=== PATIENT | female | born 1940 | race Caucasian/White ===

== ENCOUNTER 2018-11-11 02:06 | Observation (INO) | payer MEDICARE ==
[~2018-11-11] VITALS: Ht 165.1 cm; Wt 72.6 kg
[~2018-11-11 02:06] MED LIST: ALEVE PO; ASA325 PO; CIPRO500 MG PO; CIPROFLOXACIN PO; CLARITIN10 M2 PO; LOVASTATIN10 MG PO; LOVASTATIN20 MG PO; MOBIC7.5 MG PO; RESTASIS OU; TYLENOL PO; ULTRAM50 MG PO; ZANTAC PO; ZYRTEC10 M3 PO
--- OUTSIDE RECORDS SUMMARY | 2018-11-11 02:11 | XMS REPORT | Continuity of Care Document ---
Author Author [facility] Organization Interface Address Unknown Phone Unavailable Problems Problem Status Onset Date Classification Date Reported Comments Source M54.41 - "LUMBAGO WITH SCIATICA, RIGHT S Active 04/19/2017 [facility] Medications Medication Details Route Status Patient Instructions Ordering Provider Order Date Source Allergies, Adverse Reactions, Alerts Substance Category Reaction Severity Reaction type Status Date Reported Comments Source morphine Assertion Drug allergy Active [facility] [place] Immunizations Immunization Date Given Site Status Last Updated Comments Source Results Order Name Results Value Reference Range Date Interpretation Comments Source Spine lumbar 2 or 3 views DX Spine lumbar 2 or 3 views DX EXAM: XR LUMBAR SPINE 3 VIEWS DATE: 04/19/2017 3:52 PM CDT INDICATION: - M54.41 Lumbago with sciatica, right side COMPARISON: SPINE LUMBAR SERIES DX 07/15/2006. TECHNIQUE: AP and lateral radiographs of the lumbar spine FINDINGS: 5 lumbar type, non-rib bearing vertebral bodies are present. Vertebral body heights and disc heights are maintained. Alignment is within normal limits. There is no osseous degenerative change. No soft tissue abnormality is identified. IMPRESSION: No acute abnormality. 04/19/2017 - - This report was dictated by a Motor Man/Fellow. I have personally reviewed the images as well as the Resident's interpretation and agree with the findings. Read by: Marleny Bae MD Resident: Marleny Bae MD Dictated Date/time: 04/19/17 17:23 Electronically Signed by: Amanda Benitez MD 04/19/17 19:00 FINAL REPORT [facility] Vital Signs Vital Sign Value Date Comments Source Encounters Location Location Details Encounter Type Encounter Number Reason For Visit Attending Provider ADM Date DC Date Status Source [facility] [place] [facility] [id number] iYfan Garcia 02/10/2015 02/11/2015 [facility] [place] [facility] Outpatient Imaging - [place] [facility] [id number] An Rios 04/19/2017 04/20/2017 ISIAH ESPARZA [place] Procedures Procedure Code Date Perfomer Comments Source
--- OUTSIDE RECORDS SUMMARY | 2018-11-11 02:11 | XMS REPORT | Summary of Care ---
Author Author [facility] Outpatient Imaging [facility]patient [facility] Address Unknown Phone Unavailable Encounter [facility] Encntr_alias(FIN) [id number] Date(s): 04/19/17 - 04/19/17 [facility] Outpatient Imaging [facility] [address] [facility], [address] [place] [phone] Discharge Disposition: Home or Self Care Attending Physician: An Rios MD Vital Signs No data available for this section Problem List No data available for this section Allergies, Adverse Reactions, Alerts Substance Reaction Severity Status morphine Active Medications No data available for this section Results No data available for this section Immunizations No data available for this section Procedures No data available for this section Social History No data available for this section Assessment and Plan No data available for this section
--- OUTSIDE RECORDS SUMMARY | 2018-11-11 02:11 | XMS REPORT | Summary of Care ---
Author Organization Unknown Address Unknown Phone Unavailable Encounter [facility] Encntr_xenia([place]) [id number] Date(s): 02/10/15 - 02/10/15 [facility] Outpatient Imaging - [address] [address] [phone] Discharge Disposition: Home Physician Attending: Yifan Garcia MD Vital Signs No data available for [...]
[2018-11-11] MEDS ORDERED: TRAMADOL HCL 50 MG TAB PO ONE (02:15)
--- NOTE | 2018-11-11 03:49 | Diagnostic Imaging Report ---
Thoracic Spine Radiographs: 2 views Lumbar Spine Radiographs: 3 views HISTORY: Fall. COMPARISON: None available. DISCUSSION: Some of the osseous structures are partially obscured by stool and bowel gas. There are five non-rib bearing lumbar vertebral bodies. The alignment of the spine is within normal limits. Age indeterminate L1 compression deformity with approximately 15% loss of vertebral body height. Disc Spaces: Mild disc space narrowing at L5-S1. Facets: The facet joints are unremarkable. IMPRESSION: Age indeterminate L1 compression deformity. No acute radiographic abnormalities of the thoracic spine. Signed by: DR. Ousmane Lopez MD on 11/11/2018 3:46 AM
--- NOTE | 2018-11-11 03:51 | Diagnostic Imaging Report ---
HIP LEFT 2-3 VW (+/- PELVIS) HISTORY: Fall. COMPARISON: None available. FINDINGS: Bones: No acute displaced fracture. Osseous alignment is within normal limits. Joints: The joint spaces are well-maintained. Soft tissues: The soft tissues appear unremarkable. IMPRESSION: No acute radiographic abnormality. Signed by: DR. Ousmane Lopez MD on 11/11/2018 3:47 AM
--- NOTE | 2018-11-11 03:52 | Diagnostic Imaging Report ---
KNEE LEFT THREE VIEWS HISTORY: Pain. COMPARISON: None available. FINDINGS: Bones: No acute displaced fracture. Osseous alignment is within normal limits. Joints: Left knee total arthroplasty without evidence of hardware fracture or loosening. Soft tissues: The soft tissues appear unremarkable. IMPRESSION: No acute radiographic abnormality. Signed by: DR. Ousmane Lopez MD on 11/11/2018 3:49 AM
[2018-11-11] MEDS ORDERED: HYDROMORPHONE 2MG/ML 2 MG/ML ML IV ONE ×2 (04:15→11:00)
[2018-11-11] MEDS ORDERED: ONDANSETRON HCL INJ 2MG/ML 2ML 2 MG/ML VIAL IV STA (04:20)
[2018-11-11 04:31] LABS: BASOPHILS % 0.2 % (0.0-1.0); EOSINOPHILS # (AUTO) 0.1 (0.0-0.4); EOSINOPHILS % 0.7 % (0.0-6.0); HEMATOCRIT 36.7 % (34.2-44.1); HEMOGLOBIN 12.1 g/dL (12.0-16.0); LYMPHOCYTES # (AUTO) 1.1 (1.0-3.2); LYMPHOCYTES % 12.7 % (18.0-39.1); MONOCYTES # (AUTO) 0.6 (0.2-0.8); MONOCYTES % 6.4 % (4.4-11.3); NEUTROPHILS % 79.5 % (38.7-80.0); PLATELET COUNT 247 x10e3/uL (140-360); RED BLOOD COUNT 4.17 x10e6/uL (3.6-5.1); RED CELL DISTRIBUTION WIDTH 13.4 % (11.7-14.4)
[2018-11-11 04:40] LABS: INR 0.88; PROTHROMBIN TIME 12.4 seconds (11.9-14.5)
[2018-11-11 04:41] LABS: PARTIAL THROMBOPLASTIN TIME 28.7 seconds (23.8-35.5)
[2018-11-11 04:45] LABS: ANION GAP 11.6 mmol/L (8-16); BLOOD UREA NITROGEN 15 mg/dL (7-26); BUN/CREATININE RATIO 21 (6-25); CALCIUM 9.3 mg/dL (8.4-10.2); CARBON DIOXIDE 27 mmol/L (22-29); CHLORIDE 97 mmol/L (98-107); CREATININE, SERUM 0.72 mg/dL (0.57-1.11); EST GLOMERULAR FILTRATION RATE > 60 ML/MIN (60-); GLUCOSE 118 mg/dL (74-118); POTASSIUM 3.6 mmol/L (3.5-5.1); SODIUM 132 mmol/L (136-145)
--- OUTSIDE RECORDS SUMMARY | 2018-11-11 04:47 | XMS REPORT ---
Author Author [facility] Address Unknown Phone Unavailable Care Team Providers Care [employer] Electrical Engineer Name Role Phone Zelalem JIMENES Unavailable Unavailable Problems This patient has no known problems. Allergies, Adverse Reactions, Alerts This patient has no known allergies or adverse reactions. Medications This patient has no known medications. Results Test Description Test Time Test Comments Text Results Atomic Results Result Comments KNEE LEFT THREE VIEWS 2018-11-11 03:47:00 [facility] [address] [address] Patient Name: GAUDENCIO CHEUNG V MR #: [id number] : 1940 Age/Sex: 78/F Req #: [id number] Adm Physician: Ordered by: ANAHY JIMENES MD Report #: [id number] Location: ER Room/Bed: Procedure: [id number] DX/KNEE LEFT THREE VIEWS Exam Date: 11/11/18 Exam Time: 0250 REPORT STATUS: Signed KNEE LEFT THREE VIEWS HISTORY: Pain. COMPARISON: None available. FINDINGS: Bones: No acute displaced fracture. Osseous alignment is within normal limits. Joints: Left knee total arthroplasty without evidence of hardware fracture or loosening. Soft tissues: The soft tissues appear unremarkable. IMPRESSION: No acute radiographic abnormality. Signed by: DR. Ousmane Lopez MD on 11/11/2018 3:49 AM Dictated By: OUSMANE LOPEZ MD 8 Transcribed By: HEATHER on 11/11/18348 COPY TO: ANAHY JIMENES MD HIP LEFT 2-3 VW (+/- PELVIS) 2018-11-11 03:46:00 [id number] [address] Patient Name: GAUDENCIO CHEUNG V MR #: [id number] : 1940 Age/Sex: 78/F Req #: [id number] Adm Physician: Ordered by: ANAHY JIMENES MD Report #: [id number] Location: ER Room/Bed: Procedure: [id number] DX/HIP LEFT 2-3 VW (+/- PELVIS) Exam Date: Exam Time: REPORT STATUS: Signed HIP LEFT 2-3 VW (+/- PELVIS) HISTORY: Fall. COMPARISON: None available. FINDINGS: Bones: No acute displaced fracture. Osseous alignment is within normal limits. Joints: The joint spaces are well-maintained. Soft tissues: The soft tissues appear unremarkable. IMPRESSION: No acute radiographic abnormality. Signed by: DR. Ousmane Lopez MD on 11/11/2018 3:47 AM Dictated By: OUSMANE LOPEZ MD 6 Transcribed By: HEATHER on 11/11/18346 COPY TO: ANAHY JIMENES MD THORACIC SPINE 2VW 2018-11-11 03:41:[address] [address] Patient Name: GAUDENCIO CHEUNG V MR #: [id number] : 1940 Age/Sex: 78/F Req #: [id number] Adm Physician: Ordered by: ANAHY JIMENES MD Report #: [id number] Location: ER Room/Bed: Procedure: [id number] DX/THORACIC SPINE 2VW Exam Date: 11/11/18 Exam Time: 0250 REPORT STATUS: Signed Thoracic Spine Radiographs: 2 views Lumbar Spine Radiographs: 3 views HISTORY: Fall. COMPARISON: None available. DISCUSSION: Some of the osseous structures are partially obscured by stool and bowel gas. There are five non-rib bearing lumbar vertebral bodies. The alignment of the spine is within normal limits. Age indeterminate L1 compression deformity with approximately 15% loss of vertebral body height. Disc Spaces: Mild disc space narrowing at L5-S1. Facets: The facet joints are unremarkable. IMPRESSION: Age indeterminate L1 compression deformity. No acute radiographic abnormalities of the thoracic spine. Signed by: DR. Ousmane Lopez MD on 11/11/2018 3:46 AM Dictated By: OUSMANE LOPEZ MD 5 Transcribed By: HEATHER on 11/11/18345 COPY TO: ANAHY JIMENES MD LUMBAR 3 VIEW 2018-11-11 03:41:00 [address] [address] Patient Name: GAUDENCIO CHEUNG V MR #: [id number] : 1940 Age/Sex: 78/F Req #: [id number] Adm Physician: Ordered by: ANAHY JIMENES MD Report #: [id number] Location: ER Room/Bed: Procedure: [id number] DX/LUMBAR 3 VIEW Exam Date: 11/11/18 Exam Time: 0250 REPORT STATUS: Signed Thoracic Spine Radiographs: 2 views Lumbar Spine Radio graphs: 3 views HISTORY: Fall. COMPARISON: None available. DISCUSSION: Some of the osseous structures are partially obscured by stool and bowel gas. There are five non-rib bearing lumbar vertebral bodies. The alignment of the spine is within normal limits. Age indeterminate L1 compression deformity with approximately 15% loss of vertebral body height. Disc Spaces: Mild disc space narrowing at L5-S1. Facets: The facet joints are unremarkable. IMPRESSION: Age indeterminate L1 compression deformity. No acute radiographic abnormalities of the thoracic spine. Signed by: DR. Ousmane Lopez MD on 11/11/2018 3:46 AM Dictated By: OUSMANE LOPEZ MD [id number] Transcribed By: HEATHER on 11/11/186 COPY TO: ANAHY JIMENES MD
[2018-11-11] MEDS ORDERED: DONEPEZIL HCL5 MG PO (06:01)
[2018-11-11] MEDS ORDERED: RESTASIS1 EACH OU (06:01)
--- NOTE | 2018-11-11 06:49 | NUR ---
received report from off going nurse, patient in room in bed, awake and alert. no s/s of acute distress. reports pain meds admin are still working and thather pain is well managed. pending room assignment for admission. bed down call lightin reach, will continue to monitor.
[2018-11-11] MEDS: HYDROMORPHONE 2MG/ML 2 MG/ML ML IV PRN ×2 (10:30→18:23)
[2018-11-11] MEDS: ONDANSETRON HCL INJ 2MG/ML 2ML 2 MG/ML VIAL IV PRN (10:32)
[2018-11-11] MEDS ORDERED: HYDROMORPHONE 1MG/1ML INJ IV ONE (10:45)
[2018-11-11] MEDS: PROMETHAZINE 12.5MG/ NACL 0.9% 12.5 MG/50 ML BAG IV PRN ×2 (13:14→18:24)
--- NOTE | 2018-11-11 14:57 | Diagnostic Imaging Report ---
EXAMINATION: MRI of the lumbar spine without contrast HISTORY: Low back pain, status post fall today, evaluate L1 compression fracture COMPARISON: Lumbar spine x-ray 11/11/2018 TECHNIQUE: Sagittal T1, T2, STIR; axial T2 and proton density. FINDINGS: It is assumed that there are 5 lumbar vertebrae. Curvature/Alignment: Normal lordosis. Vertebrae: -Acute compression fracture of the L1 vertebral body with decreased vertebral body height by approximately 10%, very minimal posterior retropulsion of the superior endplate, prominent subchondral bone marrow edema pattern is to the superior endplate. No associated spinal canal stenoses or compression of the conus medullaris. No abnormalities of the posterior ligamentous complex.-No other fractures, infection or neoplasm. -Diffuse increased T1 bone marrow signal intensity likely related to osteopenia. Conus: Normal, terminating at L1-L2 Cauda equina: Unremarkable. Lower thoracic: Unremarkable. Paraspinal soft tissues: Moderate to severe paraspinal musculature atrophy Degenerative changes: L1-L2: Minimal symmetric disc bulge without stenoses L2-L3: Minimal symmetric disc bulge and facet arthrosis without stenoses L3-L4: Mild symmetric disc bulge and facet arthrosis. No significant stenoses. L4-L5: Mild symmetric disc bulge, ligamenta flava thickening and facet arthrosis without significant stenoses. L5-S1: Mild asymmetric right disc bulge and marginal endplate osteophytes, moderate bilateral facet arthroses. No significant canal or foraminal stenoses. IMPRESSION: 1. Unchanged mild acute osteoporotic compression fracture of the L1 vertebral body without associated canal stenosis or cord compression. 2. Mild multilevel degenerative changes without significant spinal canal or foraminal stenosis. Signed by: Dr. Danielle Stiles M.D. on 11/11/2018 2:54 PM
--- NOTE | 2018-11-11 19:32 | NUR ---
PT AWAKE ALERT SKIN W/D RESP NONLAB. NAD NOTED. REPORT CALLED TO FLOOR. FAMILY AT BEDSIDE. PT STATES SHE FEELS MUCH BETTER
[2018-11-11 20:00] VITALS: BP 139/70
--- NOTE | 2018-11-11 20:00 | NUR ---
PATIENT RECEIVED FROM EMERGENCY DEPARTMENT PER BED AT 140. SHE'S ALERT AND ORIENTED X3, NO RESPIRATORY DISTRESS OBSERVED AND SHE DENIES PAIN. BRUISES OBSERVED TO THE LEGS, ARMS, LEFT KNEE AND LEFT SIDE OF THE BUTTOCK. NON PITTING EDEMA TO THE LEFT KNEE, PATIENT ORIENTED TO SURROUNDINGS, CALL LIGHT WITHIN EASY REACH AND HER FAMILY MEMBERS ARE AT THE BEDSIDE.
[2018-11-11 20:15] VITALS: BP 139/70
[2018-11-12] VITALS (9 sets, daily range): BP systolic 107–164; BP diastolic 55–93
--- NOTE | 2018-11-12 00:33 | NUR ---
PATIENT IS ASLEEP, SHE'S EASY TO AROUSE. SHE DENIES PAIN, FAMILY MEMBER IN THE ROOM WITH THE PATIENT, BED ALARM ON.
[2018-11-12] MEDS: HYDROMORPHONE 2MG/ML 2 MG/ML ML IV PRN ×2 (04:25→11:46)
[2018-11-12] MEDS: ONDANSETRON HCL INJ 2MG/ML 2ML 2 MG/ML VIAL IV PRN (04:25)
--- NOTE | 2018-11-12 04:26 | NUR ---
PATIENT ASSISTED TO THE RESTROOM TO VOID, SHE'S NOW BACK IN BED AND C/O PAIN TO THE LOWER BACK. MEDICATED WITH DILAUDID AND ZOFRAN ORDERED, BED ALARM ON, CALL LIGHT WITHIN EASY REACH.
--- NOTE | 2018-11-12 10:22 | NUR ---
Dr. Garcia aware in regards to pt's procedure, Kyphoplasty, will be done tomorrow per Planning Supervisor. Consent filled out and signed, placed in pt's chart at this time.
--- NOTE | 2018-11-12 15:41 | NUR ---
SOCIAL WORK INITIAL ASSESSMENT [employer] to bedside to discuss plan of care with patient/family. CM/SW role and care transitions discussed. Anticipated discharge plan discussed along with duration of care. CM/SW discussed patients right to make decisions in care. CM/SW work hours given. Patient lives: APARTMENT BY SELF Admit/Transfer: VIA ED POA/Emergency contact: DAUGHTER [phone] Current/Previous Home Health: NONE PCP/Follow-up Care: JENNIE Current/Previous DME: WALKER BUT DOESNT USE Other Services: NONE Employment Status: TANIA Areas of Concerns: TANIA Referral Needs: NONE Education Needs: NONE IMM/MALDONADO given and signed (if applicable): MALDONADO Goal for discharge: HOME CM/SW left business card at the bedside with contact information. Name and number was also written on the patients whiteboard. Patient verbalized understanding of discussion. CM will follow-up with ongoing discharge and transition of care needs.
--- NOTE | 2018-11-12 16:31 | NUR ---
ARCHANA SPOKE TO BEDSIDE NURSE [place] AND NURSE SEWER BUILDER APOORVA REGARDING PATIENT PLAN OF CARE. PATIENT IS UPSET DUE TO PROCEDURE BEING PUSHED BACK TO SATURDAY AT 0730 DUE TO AVAILABILITY. THE PROCEDURE IS CONSIDERED AN OUTPATIENT PROCEDURE. DR. SCHNEIDER CALLED AND CM NOTIFIED MD OF SITUATION AND RECOMMENDED DISCHARGING PATIENT SO THEY CAN FOLLOW UP OUTPATIENT. FAMILY AND PATIENT UPSET AND WANTS A DECISION MADE TODAY WHETHER THE PATIENT WILL BE DISCHARGE AND FOLLOW UP OUTPATIENT OR THE PROCEDURE IS MOVED TO SATURDAY INSTEAD OF SATURDAY. MY CM NOTIFIED AND ARCHANA SOUZA NOTIFIED. DR. SCHNEIDER STATES HE WILL SPEAK TO CATHY CARVAJAL REGARDING SITUATION. NOLAN, DIRECTOR OVER IR CALLED AND CM LEFT MESSAGE REGARDING SITUATION. ARCHANA SOUZA OVER PATIENT CASE NOTIFIED OF SITUATION.
[2018-11-12] MEDS: TRAMADOL HCL 50 MG TAB PO PRN ×2 (17:00→23:00)
--- NOTE | 2018-11-12 19:00 | NUR ---
Report and rounds completed. In bed with visitor at bedside. No issues or concerns at this time. Call light within reach, bed locked and lowest position. Will continue to monitor.
[2018-11-12] MEDS: DONEPEZIL HCL 5 MG TAB PO SCH (21:07)
--- NOTE | 2018-11-12 22:00 | NUR ---
Assisted up to bathroom with standby with walker. Requesting pain medication, education provided on next available dose at 2300, verbalized understanding. Assisted back to bed and heat pack and additional pillows given. Stating that heat pack and pillow helping. Call light within reach and bed in lowest position. Will continue to monitor.
[2018-11-13] VITALS: BP 138/71
[2018-11-13] MEDS: HYDROCODONE/APAP 10MG-325MG TAB PO PRN ×3 (00:20→14:39)
--- NOTE | 2018-11-13 01:00 | NUR ---
pt received. tele in place per orders. no ss of distress noted. call michael within reach.
[2018-11-13 04:00] VITALS: BP 142/66
--- NOTE | 2018-11-13 04:17 | NUR ---
pt resting. no ss of distress noted. no co pain at time. call michael within reach.
[2018-11-13 07:48] VITALS: BP 133/65
[2018-11-13] MEDS: TRAMADOL HCL 50 MG TAB PO PRN ×2 (10:00→18:38)
[2018-11-13 11:30] VITALS: BP 124/63
[2018-11-13 15:25] VITALS: BP 135/68
[2018-11-13 20:00] VITALS: BP 143/74
[2018-11-13] MEDS: DONEPEZIL HCL 5 MG TAB PO SCH (21:08)
--- NOTE | 2018-11-13 21:08 | NUR ---
PATIENT ASSISTED TO THE RESTROOM TO VOID USING THE ROLLING WALKER, SHE'S NOW BACK IN BED WITHOUT DISTRESS. BED ALARM ON, CALL LIGHT WITHIN EASY REACH.
[2018-11-14] VITALS (7 sets, daily range): BP systolic 140–169; BP diastolic 62–82
[2018-11-14] MEDS: TRAMADOL HCL 50 MG TAB PO PRN (00:25)
--- NOTE | 2018-11-14 00:27 | NUR ---
PATIENT JUST GOT BACK FROM THE RESTROOM, NO RESPIRATORY DISTRESS OBSERVED. SHE C/O PAIN TO THE LOWER BACK, MEDICATED WITH TRAMADOL ORDERED. CALL LIGHT WITHIN EASY REACH, INSTRUCTED TO CALL FOR ASSISTANCE NEEDED.
--- NOTE | 2018-11-14 04:25 | NUR ---
ASSISTED WITH ADLS, NO RESPIRATORY DISTRESS OBSERVED AND PATIENT DENIES PAIN TO THE BACK.
[2018-11-14] MEDS ORDERED: BUPIVACAINE 0.25% 30ML SDV INJ ONE (06:54)
[2018-11-14] MEDS ORDERED: SODIUM CHLORIDE 0.9% 500ML 1,000 ML ONE (07:06)
[2018-11-14] MEDS ORDERED: FENTANYL CITRATE/PF 100MCG/2 ML INJ ONE (07:06)
[2018-11-14] MEDS ORDERED: MIDAZOLAM HCL 2 MG/2 ML VIAL ONE (07:06)
[2018-11-14] MEDS ORDERED: LIDOCAINE HCL 1% LOCAL INJ 20 ML VIAL ONE (07:07)
--- NOTE | 2018-11-14 07:19 | NUR ---
pt off unit at this time, via bed with 2 assist. pt in stable condition, moderate c/o pain to lower/mid back. Resp WNL, IV patent, asymptomatic and intact.
[2018-11-14] MEDS ORDERED: CEFAZOLIN SOD 1 GM VIAL ONE (07:27)
[2018-11-14] MEDS ORDERED: SODIUM CHLORIDE 0.9% 100 ML 100 ML ONE (07:28)
--- NOTE | 2018-11-14 08:20 | NUR ---
pt arrived back to unit via bed with 1 assist. No c/o pain. Dressing to R mid/lower back, CDI. No redness or swelling to site.
[2018-11-14] MEDS: HYDROCODONE/APAP 10MG-325MG TAB PO PRN (10:55)
[2018-11-14] MEDS: ONDANSETRON HCL INJ 2MG/ML 2ML 2 MG/ML VIAL IV PRN (14:49)
--- NOTE | 2018-11-14 16:25 | NUR ---
PT eval completed. Pt was able to ambulate steadily with a RW. Will benefit from a short-term home PT services for strengthening and home safety eval. Addendum: 11/14/18 at 1625 by Kenroy Olsen PT Amended: Links added.
--- NOTE | 2018-11-14 21:10 | NUR ---
DRESSING DRY AND INTACT TO THE BACK, PATIENT DENIES PAIN. NO RESPIRATORY DISTRESS OBSERVED, BED ALARM ON, CALL LIGHT WITHIN EASY REACH.
[2018-11-14] MEDS: DONEPEZIL HCL 5 MG TAB PO SCH (21:28)
[2018-11-15 00:41] VITALS: BP 145/71
[2018-11-15] MEDS: TRAMADOL HCL 50 MG TAB PO PRN ×2 (01:07→14:00)
--- NOTE | 2018-11-15 01:08 | NUR ---
PATIENT WAS ASSISTED TO THE RESTROOM TO VOID, SHE'S NOW BACK IN BED. SHE C/O PAIN TO THE BACK WITH PAIN SCORE #8, MEDICATED WITH TRAMADOL ORDERED. APPLE JUICE WITH JELLO PROVIDED TO THE PATIENT, SHE'S INSTRUCTED TO CALL FOR ASSISTANCE NEEDED.
[2018-11-15] MEDS: ONDANSETRON HCL INJ 2MG/ML 2ML 2 MG/ML VIAL IV PRN ×2 (03:16→10:14)
--- NOTE | 2018-11-15 03:16 | NUR ---
PATIENT C/O NAUSEA, MEDICATED WITH ZOFRAN ORDERED. ICE CHIP GIVEN TO THE PATIENT, WILL CLOSELY MONITOR.
[2018-11-15 04:12] VITALS: BP 163/88
--- NOTE | 2018-11-15 06:38 | NUR ---
DR BROWN SAW THE PATIENT, HE ORDER TO DISCHARGE THE PATIENT TO HOME AFTER SHE AMBULATES WITH PHYSICAL THERAPY THIS MORNING.
[2018-11-15] MEDS ORDERED: MAGNESIUM HYDROXIDE 30 ML UDC PO ONE (06:45)
[2018-11-15 08:00] VITALS: BP 146/80
--- NOTE | 2018-11-15 08:39 | NUR ---
Received patient this morning, a/x3, pleasant and minimal pain to back, medicated, VSS, OOB and ambulated with PT this morning, call light within reach, will monitor.
[2018-11-15] MEDS: HYDROCODONE/APAP 10MG-325MG TAB PO PRN (09:00)
--- NOTE | 2018-11-15 09:36 | NUR ---
Call to Dr. Don and orders in place for home health services for PT and home safety eval.
[2018-11-15 09:42] VITALS: BP 146/80
--- NOTE | 2018-11-15 10:20 | NUR ---
Patient c/o nausea post [place] and medicated with Zofran as ordered.
--- NOTE | 2018-11-15 11:14 | Progress Note ---
DATE: SUBJECTIVE: This patient is status post kyphoplasty for acute vertebral fracture of lumbar vertebrae. Currently still in pain, on [place]. Does continue to have some constipation. The patient otherwise has no complaint. Did ambulate with physical therapy about 15 minutes yesterday and did help some. ACTIVE MEDICATIONS: Donepezil, hydrocodone, hydromorphone, milk of magnesia, and tramadol. PHYSICAL EXAMINATION: VITAL SIGNS: T-max 97.4, respirations 20, blood pressure is 163/88, pulse oximetry of 100% on room air. HEENT: Normocephalic, atraumatic. Pupils are reactive to light and accommodation. CVS: S1 and S2 are normal. Regular rhythm. ABDOMEN: Nontender, nondistended. Tenderness in the lumbar vertebrae. EXTREMITIES: No clubbing, no cyanosis, no edema. ASSESSMENT: Status post acute lumbar vertebral fracture status post kyphoplasty. PLAN: Plan is to continue physical therapy, send the patient home on medications and possible discharge today depending on physical therapy progress. MD GEORGES Cross/MODL /[id number]
--- NOTE | 2018-11-15 11:30 | NUR ---
GOT CHOICE SIGNED FOR [facility]. FAXED CLINICALS TO [phone].
[2018-11-15 12:00] VITALS: BP 165/77
--- NOTE | 2018-11-15 12:37 | NUR ---
SPOKE WITH MIRA AT [facility] SHE HAS CONFIRMED RECEIPT OF CLINICALS AND STATES WILL PROCESS AND SEE ON SATURDAY.
--- NOTE | 2018-11-15 14:46 | NUR ---
Call to Dr. Don and will sent prescriptions for Zofran and Tramadol electronically to the pharmacy, orders to discharge patient and discharge documentation provided, IV line removed and cath tip in place, dressing applied. CM called and confirmed home health set up complete.
== END 2018-11-15 14:57 | disposition home or self-care (01) ==
LOC: ER 02:06 → ERHOLD 04:44 → IMCU 20:12
PROVIDERS: ADMIT Internal Medicine; ATTEND Internal Medicine
DX: S32.010A Wedge compression fracture of first lumbar vertebra, initial encounter for closed fracture (principal); W01.0XXA Fall on same level from slipping, tripping and stumbling without subsequent striking against object, initial encounter; Y93.01 Activity, walking, marching and hiking; Y92.012 Bathroom of single-family (private) house as the place of occurrence of the external cause; K21.9 Gastro-esophageal reflux disease without esophagitis; E78.00 Pure hypercholesterolemia, unspecified; Z82.49 Family history of ischemic heart disease and other diseases of the circulatory system; S80.212A Abrasion, left knee, initial encounter; K59.00 Constipation, unspecified; I10 Essential (primary) hypertension; G31.84 Mild cognitive impairment of uncertain or unknown etiology; Z88.5 Allergy status to narcotic agent; Z88.8 Allergy status to other drugs, medicaments and biological substances
CPT/HCPCS: 22514; 36415; 72070; 72100; 72148; 73502; 73562; 74470; 80048; 85025; 85610; 85730; 96374; 96376; 97116 ×2; 97139; 97161; 97530 ×2; 99284; C1727; G0378 ×5; J0690; J1170 ×2; J2001; J2250; J2405 ×4; J2550; J7040

== ENCOUNTER 2021-06-01 08:21 | Observation (INO) | payer MEDICARE ==
[2021-05-31 10:40] LABS: BASOPHILS % 0.8 % (0.0-1.0); EOSINOPHILS # (AUTO) 0.2 (0.0-0.4); EOSINOPHILS % 3.7 % (0.0-6.0); HEMATOCRIT 40.4 % (34.2-44.1); HEMOGLOBIN 12.6 g/dL (12.0-16.0); LYMPHOCYTES # (AUTO) 1.5 (1.0-3.2); LYMPHOCYTES % 29.5 % (18.0-39.1); MEAN CORPUSCULAR HEMOGLOBIN 28.9 pg (28-32); MEAN CORPUSCULAR HGB CONC 31.2 g/dL (31-35); MEAN CORPUSCULAR VOLUME 92.7 fL (81-99); MONOCYTES # (AUTO) 0.4 (0.2-0.8); NEUTROPHILS # (AUTO) 2.8 (2.1-6.9); NEUTROPHILS % 56.8 % (38.7-80.0); PLATELET COUNT 224 x10e3/uL (140-360); RED BLOOD COUNT 4.36 x10e6/uL (3.6-5.1); RED CELL DISTRIBUTION WIDTH 13.4 % (11.7-14.4)
[2021-05-31 10:53] LABS: INR 0.9; PROTHROMBIN TIME 12.3 seconds (11.9-14.5)
[2021-05-31 10:54] LABS: PARTIAL THROMBOPLASTIN TIME 24.8 seconds (23.8-35.5)
[2021-05-31 11:00] LABS: ANION GAP 13.2 mmol/L (8-16); CALCIUM 9.4 mg/dL (8.4-10.2); CREATININE, SERUM 0.82 mg/dL (0.57-1.11); POTASSIUM 4.2 mmol/L (3.5-5.1)
[~2021-06-01] VITALS: Ht 165.1 cm; Wt 63.0 kg
[~2021-06-01 08:21] MED LIST changes: +DONEPEZIL HCL5 MG PO; +LIDOCAINE 1% W/EPINEPHRINE 20 ML VIAL ONE; +NAMENDA10 MG PO; +NAPROXEN250 MG PO; +NEURONTIN100 MG PO; +RESTASIS1 EACH OU; +SODIUM CHLORIDE 0.9% 50ML 100 ML ONE; +THROMBIN FOR SOLN 5,000 UNIT VIAL ONE; +Vancomycin IV 1 GM VIAL ONE
[2021-06-01] MEDS ORDERED: HYDROCODON-ACE1 EA12 PO (10:11)
[2021-06-01] MEDS ORDERED: ACETAMINOPHEN 325 MG TAB PO PRN (10:15)
[2021-06-01] MEDS ORDERED: ONDANSETRON HCL INJ 2MG/ML 2ML 2 MG/ML VIAL IV PRN (10:15)
[2021-06-01] MEDS ORDERED: PROMETHAZINE HCL (IM) 25 MG/ML VIAL IM PRN (10:15)
[2021-06-01] MEDS ORDERED: MORPHINE SULFATE 5 MG/ML VIAL IM PRN (10:15)
[2021-06-01] MEDS ORDERED: CARISOPRODOL 350 MG TAB PO PRN (10:15)
[2021-06-01] MEDS ORDERED: HYDROMORPHONE 2MG/ML 2 MG/ML ML IV PRN (10:15)
[2021-06-01] MEDS ORDERED: MAGNESIUM/ALUMINUM/SIMETHICONE 30 ML UDC PO PRN (10:15)
[2021-06-01] MEDS ORDERED: OXYCODONE/ACETAMINOPHEN 5-325 1 EACH TABLET PO PRN (10:15)
[2021-06-01] MEDS: LACTATED RINGER'S 1,000 ML IV SCH ×2 (10:15→18:35)
[2021-06-01 11:40] VITALS: BP 156/94
[2021-06-01 12:17] VITALS: BP 156/94
[2021-06-01 15:28] VITALS: BP 150/76
[2021-06-01] MEDS: GABAPENTIN 100 MG CAP PO SCH (18:17)
[2021-06-01] MEDS: NAPROXEN 250 MG TAB PO SCH (18:17)
[2021-06-01] MEDS: MEMANTINE 10 MG TAB PO SCH (18:18)
[2021-06-01] MEDS: Cefazolin 1 GM in SODIUM CHLORIDE 0.9% 50ML 50 ML IV SCH (18:22)
[2021-06-01 19:20] VITALS: BP 133/71
[2021-06-01] MEDS ORDERED: (Cyclosporine (Restasis) 1 DROP) OP SCH (21:00)
[2021-06-01] MEDS ORDERED: DONEPEZIL HCL 5 MG TAB PO SCH (21:00)
[2021-06-01] MEDS ORDERED: ZOLPIDEM TARTRATE 5 MG TAB PO PRN (21:00)
[2021-06-01 21:25] VITALS: BP 133/71
[2021-06-02 00:06] VITALS: BP 117/63
[2021-06-02] MEDS: Cefazolin 1 GM in SODIUM CHLORIDE 0.9% 50ML 50 ML IV SCH (00:28)
[2021-06-02] MEDS: LACTATED RINGER'S 1,000 ML IV SCH (01:35)
[2021-06-02 05:05] VITALS: BP 127/70
[2021-06-02 07:57] VITALS: BP 125/73
[2021-06-02 07:58] VITALS: BP 125/73
[2021-06-02] MEDS: GABAPENTIN 100 MG CAP PO SCH (08:26)
[2021-06-02] MEDS: MEMANTINE 10 MG TAB PO SCH (08:26)
[2021-06-02] MEDS: NAPROXEN 250 MG TAB PO SCH (08:26)
== END 2021-06-02 10:43 | disposition home or self-care (01) ==
LOC: OR 08:21 → PACU V 10:05 → MED/SURG 11:46
PROVIDERS: ADMIT Neurological Surgery; ATTEND Neurological Surgery
DX: M51.16 Intervertebral disc disorders with radiculopathy, lumbar region (principal); Z20.822 Contact with and (suspected) exposure to COVID-19; F03.90 Unspecified dementia, unspecified severity, without behavioral disturbance, psychotic disturbance, mood disturbance, and anxiety; Z01.818 Encounter for other preprocedural examination
CPT/HCPCS: 36415; 63056; 71046; 72020; 80048; 85025; 85610; 85730; 86850; 86900; 88304; 89060; 93005; G0378 ×2; J0690 ×2; J3370; U0002; J2550

== ENCOUNTER 2022-11-14 04:08 | Emergency (ER) | payer MEDICARE ==
[~2022-11-14] VITALS: Ht 165.1 cm; Wt 63.0 kg
[~2022-11-14 04:08] MED LIST changes: +HYDROCODON-ACE1 EA12 PO; -LIDOCAINE 1% W/EPINEPHRINE 20 ML VIAL ONE; -SODIUM CHLORIDE 0.9% 50ML 100 ML ONE; -THROMBIN FOR SOLN 5,000 UNIT VIAL ONE; -Vancomycin IV 1 GM VIAL ONE
[2022-11-14 04:43] LABS: BASOPHILS % 0.3 % (0.0-1.0); EOSINOPHILS # (AUTO) 0.2 (0.0-0.4); EOSINOPHILS % 1.4 % (0.0-6.0); HEMATOCRIT 43.2 % (34.2-44.1); HEMOGLOBIN 13.6 g/dL (12.0-16.0); LYMPHOCYTES # (AUTO) 1.8 (1.0-3.2); LYMPHOCYTES % 16.9 % (18.0-39.1); MEAN CORPUSCULAR HEMOGLOBIN 28.5 pg (28-32); MEAN CORPUSCULAR HGB CONC 31.5 g/dL (31-35); MEAN CORPUSCULAR VOLUME 90.6 fL (81-99); MONOCYTES # (AUTO) 0.6 (0.2-0.8); MONOCYTES % 5.5 % (4.4-11.3); NEUTROPHILS # (AUTO) 8.3 (2.1-6.9); NEUTROPHILS % 75.6 % (38.7-80.0); PLATELET COUNT 252 x10e3/uL (140-360); RED BLOOD COUNT 4.77 x10e6/uL (3.6-5.1)
[2022-11-14] MEDS ORDERED: SODIUM CHLORIDE 0.9% 1000ML 1,000 ML IV ONE (04:45)
[2022-11-14 04:49] LABS: INR 0.84; PROTHROMBIN TIME 11.7 seconds (11.9-14.5)
[2022-11-14 04:59] LABS: ALBUMIN 4.2 g/dL (3.5-5.0); ANION GAP 14.9 mmol/L (8-16); CALCIUM 10.1 mg/dL (8.4-10.2); CREATININE, SERUM 0.91 mg/dL (0.57-1.11); POTASSIUM 3.9 mmol/L (3.5-5.1)
[2022-11-14] MEDS ORDERED: IOPAMIDOL 370 MG/ML 100 ML INFUS..BTL INJ ONE (05:41)
[2022-11-14] MEDS ORDERED: SODIUM CHLORIDE FLUSH 10 ML SYR IV PRN (06:00)
[2022-11-14 06:47] LABS: CLARITY,URINE SL CLOUDY (CLEAR); COLOR,URINE YELLOW (YELLOW); KETONES,URINE NEGATIVE (NEGATIVE); LEUKOCYTE ESTERASE ,URINE SMALL (NEGATIVE); NITRITE,URINE POSITIVE (NEGATIVE); PROTEIN,URINE DIPSTICK NEGATIVE (NEGATIVE); URINE UROBILINOGEN 0.2 mg/dL (0.2 - 1)
[2022-11-14 07:11] LABS: BACTERIA,URINE MODERATE /HPF; EPITHELIAL CELLS,URINE RARE /LPF; RBC,URINE 0-5 /HPF (0-5); WBC,URINE (MAN) >50 /HPF (0-5)
[2022-11-14] MEDS ORDERED: CEFTRIAXONE 1 GM VIAL ONE (07:39)
[2022-11-14] MEDS ORDERED: CEFDINIR300 MG PO (07:41)
[2022-11-14 08:19] VITALS: BP 155/80
== END 2022-11-14 08:00 | disposition home or self-care (01) ==
LOC: ER 04:18
DX: R19.7 Diarrhea, unspecified (principal); N39.0 Urinary tract infection, site not specified; I10 Essential (primary) hypertension; E78.5 Hyperlipidemia, unspecified; K21.9 Gastro-esophageal reflux disease without esophagitis; F03.90 Unspecified dementia, unspecified severity, without behavioral disturbance, psychotic disturbance, mood disturbance, and anxiety
CPT/HCPCS: 36415; 74177; 80053; 81001; 83690; 85025; 85610; 87086; 87186; 99284; J0696; J7030; Q9967